=== PATIENT | male | born 1960 | race Caucasian/White ===

== ENCOUNTER → 2016-11-25 | Outpatient (CLI) | payer SELFPAY ==
[2016-11-25 11:11] LABS: HEMATOCRIT 45.3 % (42.0-52.0); MEAN CORPUSCULAR HEMOGLOBIN 23.7 PG (27-31); MEAN CORPUSCULAR HGB CONC 30.9 g/dL (33-37); MEAN PLATELET VOLUME 10.9 FL (7.4-12.2); RDW COEFFICIENT OF VARIATION 23.3 % (11.5-14.5)
[2016-11-25 11:21] LABS: BUN/CREATININE RATIO 17.5 (6-20); CALCIUM 9.1 mg/dL (8.7-10.7); CREATININE 1.6 mg/dL (0.70-1.50); PHOSPHORUS 3.4 mg/dl (2.4-4.3); POTASSIUM 4.2 meq/L (3.8-5.2)
[2016-11-25 11:32] LABS: PLATELET MORPHOLOGY COMMENT NORMAL MORPHOLOGY (NORM)
[2016-11-25 11:33] LABS: HEMOGLOBIN A1C 8.02 % (4.2-6.0); MEAN BLOOD GLUCOSE (CALC) 181.066 mg/dL
[2016-11-25 11:34] LABS: BAND NEUTROPHILS % 3 % (0-10); BASOPHILS % (MANUAL) 0 % (0-1); EOSINOPHILS % (MANUAL) 9 % (0-8); LYMPHOCYTES % (MANUAL) 35 % (10-50); MONOCYTES % (MANUAL) 9 % (0-12); NEUTROPHILS % (MANUAL) 44 % (50-80)
== END ==
LOC: MOB LAB 09:36
DX: E11.9 Type 2 diabetes mellitus without complications (principal); Z79.4 Long term (current) use of insulin; E55.9 Vitamin D deficiency, unspecified; I10 Essential (primary) hypertension; D50.9 Iron deficiency anemia, unspecified; I83.022 Varicose veins of left lower extremity with ulcer of calf
CPT/HCPCS: 36415; 80048; 82306; 83036; 84100; 85007; 85652

== ENCOUNTER → 2016-11-27 | Outpatient (CLI) | payer SELFPAY | LOC: LAB 16:25 | DX: R71.8 Other abnormality of red blood cells (principal) | CPT/HCPCS: 36415; 82728; 83540; 83550 ==

== ENCOUNTER → 2017-01-06 | Outpatient (CLI) | payer BC, OTHER ==
[2017-01-06 14:10] LABS: BASOPHILS # (AUTO) 0.03 10*3/UL; BASOPHILS % (AUTO) 0.3 % (0-1); HEMOGLOBIN 13.1 g/dL (14.0-18.0); IMM GRAN % (AUTO) 0.4 % (0-5); IMM GRAN# (AUTO) 0.04 10*3/UL; LYMPHOCYTES # (AUTO) 1.12 10*3/uL; LYMPHOCYTES % (AUTO) 12.4 % (10-50); MEAN CORPUSCULAR HEMOGLOBIN 24.7 PG (27-31); MEAN CORPUSCULAR HGB CONC 31.2 g/dL (33-37); MEAN PLATELET VOLUME 10.3 FL (7.4-12.2); MONOCYTES # (AUTO) 0.98 10*3/UL (0.3-0.8); MONOCYTES % (AUTO) 10.9 % (5-15); NEUTROPHILS # (AUTO) 5.66 10*3/UL; RDW COEFFICIENT OF VARIATION 20.8 % (11.5-14.5)
[2017-01-06 14:13] LABS: PLATELET MORPHOLOGY COMMENT NORMAL MORPHOLOGY (NORM)
[2017-01-06 15:43] LABS: BUN/CREATININE RATIO 35.55 (6-20); CREATININE 1.8 mg/dL (0.70-1.50)
== END ==
LOC: MOB LAB 10:37
DX: E11.9 Type 2 diabetes mellitus without complications (principal); Z79.4 Long term (current) use of insulin; I10 Essential (primary) hypertension; R04.2 Hemoptysis; Z12.5 Encounter for screening for malignant neoplasm of prostate
CPT/HCPCS: 36415; 80048; 85025; G0103

== ENCOUNTER → 2017-02-27 | Outpatient (CLI) | payer BC, OTHER ==
[2017-02-27 13:55] LABS: BILIRUBIN,URINE NEGATIVE (NEG); COLOR,URINE YELLOW; GLUCOSE, URINE (UA) NEGATIVE (NEG); NITRATE,URINE NEGATIVE (NEG); OCCULT BLOOD,URINE NEGATIVE (NEG); PROTEIN,URINE 30 mg/dl (NEG)
[2017-02-27 14:02] LABS: CLARITY,URINE CLEAR (CLEAR); RBC,URINE 0-2 /hpf; SQUAMOUS EPITHELIAL CELL,UR FEW; URINE SAMPLE TYPE VOID
== END ==
LOC: LAB 13:33
PROVIDERS: ATTEND Urology
DX: C67.9 Malignant neoplasm of bladder, unspecified (principal)
CPT/HCPCS: 81001

== ENCOUNTER → 2017-03-03 | Outpatient (CLI) | payer BC, OTHER ==
[2017-03-03 14:23] LABS: BUN/CREATININE RATIO 18.88 (6-20); CALCIUM 9.4 mg/dL (8.7-10.7)
[2017-03-03 14:31] LABS: HEMOGLOBIN A1C 7.41 % (4.2-6.0)
== END ==
LOC: MOB LAB 12:05
DX: E11.9 Type 2 diabetes mellitus without complications (principal); Z79.4 Long term (current) use of insulin; I10 Essential (primary) hypertension
CPT/HCPCS: 36415; 80048; 83036

== ENCOUNTER 2017-04-21 19:55 | Emergency (ER) | payer BC, OTHER ==
[2017-04-21] MEDS ORDERED: ONDANSETRON 4 MG/2 ML VIAL IVP ONE (20:17)
[2017-04-21] MEDS ORDERED: Sodium Chloride 0.9% 1,000 ML PRIMARY IV ONE (20:17)
[2017-04-21] MEDS ORDERED: ACETAMINOPHEN 325 MG TABLET PO ONE (20:17)
[2017-04-21] MEDS ORDERED: KETOROLAC 15 MG/1 ML VIAL IVP ONE (20:17)
[2017-04-21] MEDS ORDERED: NORMAL SALINE 10 ML SYRINGE FLUSH IVP PRN (20:17)
--- NOTE | 2017-04-21 20:22 | EKG ---
[address] [address] Measurements Intervals [place] Rate: 79 P: 60 WY: 116 QRS: 20 QRSD: 116 T: 127 QT: 376 QTc: 411 Interpretive Statements SINUS RHYTHM WITH SHORT WY INTERVAL MODERATE INTRAVENTRICULAR CONDUCTION DELAY [110+ ms QRS DURATION] ST DEVIATION AND MODERATE T-WAVE ABNORMALITY, CONSIDER LATERAL ISCHEMIA Compared to ECG 03/15/2017 19:47:34 Short [place] interval now present Intraventricular conduction delay now present T-wave abnormality now present Possible ischemia now present Atrial fibrillation no longer present Left anterior fascicular block no longer present Electronically Signed On 04-21-17 20:52:13 MDT by Prabhjot Rene [id number]
[2017-04-21 20:31] LABS: BASOPHILS # (AUTO) 0.02 10*3/UL; BASOPHILS % (AUTO) 0.1 % (0-1); EOSINOPHILS # (AUTO) 0.29 10*3/UL; EOSINOPHILS % (AUTO) 1.7 % (0-8); HEMOGLOBIN 12.3 g/dL (14.0-18.0); LYMPHOCYTES # (AUTO) 0.78 10*3/uL; MEAN CORPUSCULAR HEMOGLOBIN 25.2 PG (27-31); MEAN CORPUSCULAR HGB CONC 31.5 g/dL (33-37); MEAN CORPUSCULAR VOLUME 79.9 FL (80-90); MEAN PLATELET VOLUME 10.2 FL (7.4-12.2); MONOCYTES # (AUTO) 0.31 10*3/UL (0.3-0.8); MONOCYTES % (AUTO) 1.8 % (5-15); NEUTROPHILS % (AUTO) 91.4 % (50-80); PLATELET MORPHOLOGY COMMENT NORMAL MORPHOLOGY (NORM); RBC MORPHOLOGY COMMENT NORMAL MORPHOLOGY (NORM); RED BLOOD COUNT 4.88 10^6/uL (4.70-6.10); WBC MORPHOLOGY COMMENT NORMAL MORPHOLOGY (NORM)
[2017-04-21 20:43] LABS: C-REACTIVE PROTEIN 4.6 mg/dL (0.0-0.9); CALCIUM 8.6 mg/dL (8.7-10.7); SERUM ALBUMIN 3.7 g/dL (3.5-4.8)
[2017-04-21 21:05] LABS: ERYTHROCYTE SEDIMENTATION RATE 43 MM/HR (0-15)
--- NOTE | 2017-04-21 21:08 | DI ---
HISTORY: Fever, pain in shoulders and down into arms. FINDINGS: Cardiomegaly is noted with atheromatous changes of the dorsal aorta. Transvenous AICD an d post surgical sternal sutures are noted in position with metallic clips overlying the precordium. There appears to be some accentuation of the pulmonary vasculature in both lung bases. The lung fiel ds are otherwise essentially clear. IMPRESSION: 1. Accentuation of the pulmonary vasculature bilateral lung bases.
[2017-04-21 21:54] LABS: BILIRUBIN,URINE NEGATIVE (NEG); CLARITY,URINE CLEAR (CLEAR); COLOR,URINE YELLOW; GLUCOSE, URINE (UA) NEGATIVE (NEG); NITRATE,URINE NEGATIVE (NEG); OCCULT BLOOD,URINE NEGATIVE (NEG); PH,URINE 5.5 (5.0-8.5); PROTEIN,URINE NEGATIVE (NEG); URINE SAMPLE TYPE VOID; UROBILINOGEN,URINE 0.2 EU/dL (0.2)
[2017-04-21 22:21] VITALS: RESP 20
[2017-04-21 22:23] VITALS: TEMP 98
[2017-04-21] MEDS ORDERED: Cefepime Inj 2 GM in Sodium Chloride 0.9% 100 ML IV ONE (22:34)
[2017-04-21] MEDS ORDERED: Vancomycin Inj 1gm vial ONE (23:09)
--- NOTE | 2017-04-22 00:38 | PDOC ---
General Adult HPI - General Chief Complaint: General Medical Stated Complaint: BACK PAIN WITH FEVER AND CHILLS Date Seen by Provider: 04/21/17 Time Seen by Provider: 20:10 - History of Present Illness Initial Comment: Patient is a 57-year-old gentleman who has a complex past medical history including hospitalization about a month ago where he had cardiac arrest and internal defibrillator placement and prolonged ICU course for his arrest. He rehabilitated well after that and has been back to basically normal living for him. He is dependent on 2 L of oxygen at baseline and over the last day or 2 has been having increasing sense of malaise and feeling poorly and then some fever and rigors today. He decided to come into the emergency department be evaluated. When he arrived here in the emergency department he stated that he had some pain between his shoulder blades that went down into his arms bilaterally but that pain went away rather quickly after presenting here. He denies having any known sick contacts. He has not been having substantial cough he's had no belly pain nausea or vomiting no significant bowel changes. No significant dysuria. No obvious rashes or other infective skin issues. Have you received a tetanus shot in the past 10 years?: Yes - Patient Home Medications Home Medications: Home Medications Cholecalciferol [Vitamin D] 2 cap PO DAILY cap 09/01/13 Omeprazole 20 mg PO QD #30 cap 09/01/13 Furosemide 3 tab PO BID #120 08/26/16 Insulin Glargine Inj [Lantus Inj] 30 unit SQ BID #6 vial 11/27/16 Metoprolol Succinate 1 tab PO QD #90 tab 12/15/16 Insulin Lispro Inj [Humalog Inj] 15 units SUBCUT AC #500 ml 01/20/17 Clopidogrel Bisulfate [Plavix] 1 tab PO QD #90 tab 01/21/17 Blood Sugar Diagnostic [Blood Glucose Test] 1 strip MC 3-4X Qday #300 strip 05/09 Amiodarone HCl 200 mg PO DAILY 04/21/17 Atorvastatin Calcium 40 mg PO DAILY 04/21/17 Lisinopril 20 mg PO BID 04/21/17 QUEtiapine Tab [SEROquel Tab] 2 tab PO BEDTIME 04/21/17 Sildenafil Citrate [Viagra] 100 mg PO DAILY 04/21/17 Spironolactone 25 mg PO DAILY 05/30/17 Trazodone HCl 50 mg PO BEDTIME PRN 04/21/17 - Patient Allergies Allergies/Adverse Reactions: Allergies Allergy/AdvReac Type Severity Reaction Status Date / Time adhesive Allergy Mild HIVES Verified 04/21/17 20:19 latex Allergy Mild HIVES Verified 04/21/17 20:19 chocolate flavor AdvReac Mild SHORTNESS Verified 04/21/17 20:19 OF BREATH Past Medical History - heen HEENT History: Denies History Cardiovascular History: Hypertension, Previous [place], CAD, Pacemaker, Internal Defibrillator, Hyperlipidemia, Other (please comment) Additional Cardiovasular History: CABGx6 VESSEL 2003. STENT PLACED, DEFIB AND PACER PLACED 04/14/17. 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" Endocrine History: Type 2 Diabetes (insulin) Musculoskeletal History: Denies History Prosthesis or Implant: No Neurological History: Other (please comment) Additional Neurological History: ANOXIC BRAIN INJURY DUE TO CARDIAC ARREST IN JANUARY 2017 Blood Disorders: Denies History Psychiatric History: Denies History History of Sexually Transmitted Diseases: No Cancer History: Other (please comment) In Past Year Been Physically Harmed or Verbally Threatened: No History of MDRO: No History of Other Communicable Diseases: No Tobacco Use: Former Smoker Alcohol Use: None Substance Use Type: None Previous Surgical History: Yes Type / Date of Surgery: CABG 2003. STENT PLACEMENT, DEFIB/PACER PLACEMENT. LEFT HAND. LEFT FOOT WITH AMPUTATION OF 2 TOES ON LEFT FOOT Anesthesia Reactions: No Malignant Hyperthermia: No Significant Family History: Heart disease, Cancer, COPD, Diabetes, Hypertension Past Medical History Reviewed: Reviewed - No Changes ROS - Limitations ROS Limitations: No Limitations Constitution: REPORTS: Chills, Fever Cardiovascular: DENIES: Chest Pain, Heart Racing Respiratory: REPORTS: Denies Resp Symptoms Neurological: REPORTS: Denies Neuro Symptoms Gastrointestinal: REPORTS: Denies GI Symptoms General Adult Exam - General Appearance General Appearance: POSITIVE: Alert, Cooperative, No Acute Distress - HEENT HEENT: POSITIVE: Head Inspection Nml, Eyes Inspection Nml, Ears Inspection Nml, Nose Inspection Nml - Neck Neck: POSITIVE: Normal Inspection - Respiratory Respiratory: POSITIVE: No Respiratory Distress, Breath Sounds Normal, Chest Non- Tender - Cardiovascular Cardiovascular: POSITIVE: Regular Rate & Rhythm, No Murmur - Abdomen Abdomen: Soft: (All Quadrants), Normal Bowel Sounds: (All Quadrants), Denies Tenderness: (All Quadrants) - Neurological / Psychological Neurological: POSITIVE: Affect Apporpriate, Oriented X3 General Adult Progress - Results Reviewed by me Xrays/CTs/US Reviewed by me: Yes Radiology Findings: No obvious significant abnormalities. He had a CT chest abdomen pelvis which showed no substantial abnormality also chest x-ray that was relatively benign Lab Results Reviewed: Yes Lab Results:: Laboratory Results 04/21/17 04/21/17 Range/Units 20:05 21:47 WBC 17.49 H (4.8-10.8) 10^3/uL RBC 4.88 (4.70-6.10) 10^6/uL Hgb 12.3 L (14.0-18.0) g/dL Hct 39.0 L (42.0-52.0) % MCV 79.9 L (80-90) FL MCH 25.2 L (27-31) PG MCHC 31.5 L (33-37) g/dL RDW Std Deviation 51.2 H (39-50) fL RDW Coeff of Don 17.8 H (11.5-14.5) % Plt Count 201 (140-350) 10*3/uL MPV 10.2 (7.4-12.2) FL Immature Gran % (Auto) 0.5 (0-5) % Neut % (Auto) 91.4 H (50-80) % Lymph % (Auto) 4.5 L (10-50) % [place] % (Auto) 1.8 L (5-15) % Eos % (Auto) 1.7 (0-8) % Baso % (Auto) 0.1 (0-1) % Immature Gran # (Auto) 0.09 10*3/UL Neut # (Auto) 16.00 10*3/UL Lymph # (Auto) 0.78 10*3/uL [place] # (Auto) 0.31 (0.3-0.8) 10*3/UL Eos # (Auto) 0.29 10*3/UL Baso # (Auto) 0.02 10*3/UL WBC Morphology Comment Normal morphology (NORM) Plt Morphology Comment Normal morphology (NORM) RBC Morph Comment Normal morphology (NORM) ESR 43 H (0-15) MM/HR Sodium 133 L (135-145) meq/L Potassium 4.6 (3.8-5.2) meq/L Chloride 95 L (98-112) meq/L Carbon Dioxide 27 (23-33) meq/L Anion Gap 11 (5-20) BUN 24 H (7-22) mg/dL Creatinine 1.6 H (0.70-1.50) mg/dL Estimated GFR 45 (>60 ml/min/1.73m(2)) BUN/Creatinine Ratio 15.00 (6-20) Glucose 157 H (78-110) mg/dL Calculated Osmolality 282.0 (267-292) mOsm/kg Lactic Acid 2.7 H (0.70-2.10) MMOL/L Calcium 8.6 L (8.7-10.7) mg/dL Total Bilirubin 0.6 (0.3-1.2) mg/dL AST 25 (21-57) IU/L ALT 35 (21-72) IU/L Alkaline Phosphatase 157 H (38-126) IU/L Troponin I 0.034 (< 0.040) ng/mL C-Reactive Protein 4.6 H (0.0-0.9) mg/dL NT-Pro-B Natriuret Pep 1130 H (0-125) PG/ML Total Protein 7.1 (6.1-8.0) g/dL Albumin 3.7 (3.5-4.8) g/dL Globulin 3.4 (2.50-4.10) g/dL Albumin/Globulin Ratio 1.00 L (1.3-2.0) mg/g Ur Collection Type Void Urine Color Yellow Urine Clarity Clear (CLEAR) Urine pH 5.5 (5.0-8.5) Ur Specific [place] 1.010 (1.005-1.030) Urine Protein Negative (NEG) mg/dl Urine Glucose (UA) Negative (NEG) mg/dL Urine Ketones Negative (NEG) Urine Occult Blood Negative (NEG) Urine Nitrate Negative (NEG) Urine Bilirubin Negative (NEG) Urine Urobilinogen 0.2 (0.2) EU/dL Ur Leukocyte Esterase Negative (NEG) Ur Culture Indicated? Culture not set - Patient's Progress MDM / ED Course: This patient was admitted to the emergency department and had initial workup for possible sepsis given his fever and general malaise and recent hospitalization. Blood cultures were taken and initial labs showed a markedly elevated white blood cell count at around 17 with a left shift of 91% neutrophils. He also had an elevation in his lactic acid level. He is given some initial fluid hydration and started on broad-spectrum antibiotics including vancomycin and cefepime IV. It was recommended that he be admitted to the hospital for close monitoring and for continued care in regards to likely sepsis from a unknown source. His case was discussed with the hospitalist who recommended CT chest abdomen and pelvis. The patient's creatinine was very minimally elevated with a 1.6 creatinine on a normal scale for him is normal creatinine be 1.5. It was decided that benefit outweighed risk of kidney injury with contrast since we are doing CT scan of his chest abdomen pelvis and contrast was administered. This did not show any obvious source of infection for him. Patient is frustrated and he wants to leave and does not want to be admitted to the hospital. I've had multiple conversations with them try to talk him into being admitted to the hospital. He is insisting that he is going to leave. I have informed him that he is at very high risk for worsening of his infection and potential severe sepsis septic shock which could result in or permanent disability or prolonged severe hospitalization and he does not believe that any of those things will occur he thinks that he will be fine and is insisting on going home. I am going to make him sign out AGAINST MEDICAL ADVICE of encouraged him to follow-up with whatever health care provider he's willing to follow-up with as soon as possible. Patient Care Time - Estimated PCT Patient Care Time (In Minutes): 65 Vital Signs - Recent Vital Signs Vital Signs: Vital Signs (Last 8 hours) Temp Pulse Resp BP Pulse Ox 04/21/17 22:23 98.0 F 04/21/17 21:00 100 F H 80 20 92 04/21/17 20:24 100.9 F H 04/21/17 20:01 100.9 F H 78 26 H 128/65 96 - VS Reviewed Vital Signs Reviewed: Yes Discharge Clinical Impression: Fever, Fever of unknown origin Discharge Disposition: Against Medical Advice Condition: Stable Patient Instructions Given at Discharge: Against Medical Advice (ED) Additional Instructions: Follow-up with your retail product demo specialist or primary care provider as soon as possible.
== END 2017-04-22 01:14 | disposition left against medical advice (07) ==
LOC: ER 19:55
DX: R50.9 Fever, unspecified (principal); M54.89 Other dorsalgia; E11.9 Type 2 diabetes mellitus without complications; Z79.4 Long term (current) use of insulin; Z95.2 Presence of prosthetic heart valve
CPT/HCPCS: 36415; 71020; 71260; 74177; 80053; 81003; 83605; 83880; 84484; 85025; 85652; 86140; 87040; 87077; 87185; 87186; 87205; 93005; 93010; 96365; 96366; 96367; 96375; 99284; J0692; J1885; J2405; J3370; J7030; J7040; J7050

== ENCOUNTER → 2017-04-21 | Outpatient (CLI) | payer BC, OTHER ==
[2017-04-21 16:06] LABS: BUN/CREATININE RATIO 15.33 (6-20); CALCIUM 8.7 mg/dL (8.7-10.7); MAGNESIUM 1.1 mg/dL (1.6-2.4)
== END ==
LOC: LAB 15:39
PROVIDERS: ATTEND Internal Medicine Cardiovascular Disease
DX: I50.42 Chronic combined systolic (congestive) and diastolic (congestive) heart failure (principal)
CPT/HCPCS: 36415; 80048; 83735

== ENCOUNTER 2017-04-22 09:26 | Inpatient (IN) | payer BC, OTHER ==
[2017-04-22] MEDS ORDERED: NORMAL SALINE 10 ML SYRINGE FLUSH IVP PRN (09:59)
[2017-04-22] MEDS ORDERED: LIDOCAINE W/ SODIUM BICARB 0.5 ML SYR SUBD PRN (09:59)
[2017-04-22 10:16] VITALS: RESP 20
--- NOTE | 2017-04-22 10:23 | PDOC ---
History and Physical - History of Present Illness Date and Time of Service: 04/22/2017 11 AM Chief Complaint: Gram-positive organisms in the blood, fever not feeling well for 2 days History of Present Illness: This is a 57 years old male with medical history significant for history of diabetes, COPD on oxygen, coronary artery disease with previous CABG, on March 15 he suffered an out of hospital sudden cardiac and was successfully resuscitated. He underwent cardiac catheterization which showed significant stenosis in SVG to diagonal branch which was treated with a drug-eluting stent. His EF was 25%. He also had an AICD/pacemaker placed. He developed mild anoxic brain injury which is characterized mainly by impulsivity. He also had an episode of atrial flutter/fibrillation and underwent cardioversion. He did not tolerate Coumadin and he was put only on aspirin and Plavix. He presented last night to the ER because he was feeling weak and had malaise with fever at home. He had multiple tests in the ER which showed elevated white count they took and blood cultures they gave him antibiotics including vancomycin and cefipime there was no clear source of infection, ER physician discussed with him admission however the patient signed AMA and the went home. I was called this morning by Dr. Pruitt as the patient had positive blood cultures showing gram -positive organisms and the patient was admitted directly. Currently he is denying symptoms. He is denying pain no shortness of breath no dysuria no cough. Past Medical History Medical History: 1) CAD, s/p CABG in 2003, 5 vessels. 2) HTN. 3) DMII. 4) COPD. 5) Hypercholesterolemia. 6) obesity. 7) GERD. 8. Out of hospital cardiac arrest with ventricular fibrillation, status post AICD placement and on amiodarone therapy that happened on 03/15/2017 was transferred to [facility]. 9. Graft vessel coronary artery disease with drug eluting stent to the saphenous vein graft in March 2017. 10. Iron deficiency anemia. 11. Hematoma in the left upper chest in the AICD pocket March 2017. 12. Chronic systolic and diastolic congestive heart failure ejection fraction 25%. 13. Atrial fibrillation/flutter on aspirin and is intolerant of Coumadin. 14. Pulmonary hypertension. 15. Sleep apnea on CPAP Surgical History: 1) CABG. 2) left hand surgery. 3. Amputation off left lateral toes done early this year for osteomyelitis Pertinent Family History: positive for diabetes and heart disease in parents. father also had cancer. Past Social History: . 7 children, one has passed on from a gun shot wound, no smoking, no drinking, no illegal drugs. Tobacco Use: Former Smoker Substance Use Type: None Alcohol Use: None Medication / Allergies Home Medications: Home Medications Medication Instructions Recorded Confirmed Type Cholecalciferol [Vitamin D] 2 cap PO DAILY cap 09/01/13 04/21/17 History Omeprazole 20 mg PO QD #30 cap 09/01/13 04/21/17 History Furosemide 3 tab PO BID #120 08/26/16 04/21/17 History Insulin Glargine Inj [Lantus Inj] 30 unit SQ BID #6 vial 11/27/16 04/21/17 Clinic Metoprolol Succinate 1 tab PO QD #90 tab 12/15/16 04/21/17 Clinic Insulin Lispro Inj [Humalog Inj] 15 units SUBCUT AC #500 ml 01/20/17 04/21/17 Clinic Clopidogrel Bisulfate [Plavix] 1 tab PO QD #90 tab 01/21/17 04/21/17 Clinic Blood Sugar Diagnostic [Blood 1 strip MC 3-4X Qday #300 strip 02/26/17 04/21/17 Clinic Glucose Test] Amiodarone HCl 200 mg PO DAILY 04/21/17 04/21/17 History Atorvastatin Calcium 40 mg PO DAILY 04/21/17 04/21/17 History Lisinopril 20 mg PO BID 04/21/17 04/21/17 History QUEtiapine Tab [SEROquel Tab] 2 tab PO BEDTIME 04/21/17 04/21/17 History Sildenafil Citrate [Viagra] 100 mg PO DAILY 04/21/17 04/21/17 History Spironolactone 25 mg PO DAILY 04/21/17 04/21/17 History Trazodone HCl 50 mg PO BEDTIME PRN 04/21/17 04/21/17 History Allergies/Adverse Reactions: Allergies Allergy/AdvReac Type Severity Reaction Status Date / Time adhesive Allergy Mild HIVES Verified 04/21/17 20:19 latex Allergy Mild HIVES Verified 04/21/17 20:19 chocolate flavor AdvReac Mild SHORTNESS Verified 04/21/17 20:19 OF BREATH Review of Systems - Review of Systems All Systems: Reviewed & No Additional Complaints Except as Stated Exam - Vitals Vital Signs: Vital Signs Temperature 97.9 F Temperature Source Temporal Artery Scan Pulse Rate [Pulse Oximeter] 70 Respiratory Rate 20 Blood Pressure [Left Arm] 85/58 Pulse Ox 93 Oxygen Flow Rate 3 Oxygen Delivery Method Nasal Cannula Height 5 ft 11 in Weight 263 lb 6.4 oz - General General Appearance: POSITIVE: No Acute Distress, Cooperative, Obese - Head Head Exam: POSITIVE: Normal Inspection, Atraumatic - Eye Eye Exam: POSITIVE: Normal Appearance - ENT ENT Exam: POSITIVE: Normal Exam - Neck Neck Exam: POSITIVE: Normal Inspection - Respiratory Respiratory Exam: POSITIVE: Clear to Auscultation - Bilaterally - Cardiovascular Cardiovascular Exam: POSITIVE: RRR - GI/Abdominal GI/Abdominal Exam: POSITIVE: Normal Bowel Sounds, Non Tender, Non Distended Additional GI/Abdominal Exam Details: Rash noted in the abdominal pannus looks like candidiasis - Rectal Rectal Exam: POSITIVE: Deferred - External Exam: POSITIVE: Deferred - Extremities Extremities Exam: POSITIVE: Normal Inspection - Back Back Exam: POSITIVE: Normal Inspection - Neurological Neurological Exam: POSITIVE: Alert, Oriented x 3, CN II-XII Intact, Moves All Extremities Equally - Integumentary Additional Integumentary Exam Details: There is minimal erythema where he had the incision for the AICD was some fluctuation but it's not tender. Results - Labs CBC and BMP: 04/22/17 10:27 04/22/17 10:27 Assessment and Plan - Patient Problems (1) Gram-positive bacteremia Current Visit: Yes Status: Acute Comment: We'll be cautious with the fluids because of history of congestive heart failure, will puts him on vancomycin. I will speak with infectious disease as am I concerned there may be infection of the lead of the AICD (2) CHF (congestive heart failure) Current Visit: No Status: Acute Comment: His blood pressure is borderline so we'll hold his diuretics repeat his labs tomorrow. Qualifiers: Congestive heart failure type: diastolic Congestive heart failure chronicity: acute on chronic Qualified Description: Acute on chronic diastolic congestive heart failure Qualifier Code(s): (I50.33) Acute on chronic diastolic (congestive) heart failure (3) Acute on chronic renal failure Current Visit: Yes Status: Acute Comment: His kidney function is worse today compared to last night, as discussed above we'll give him cautious amount of fluid will keep an eye on his fluid status and the repeat his labs in the morning. May have to hold the lisinopril and Lasix for tomorrow. (4) DMII (diabetes mellitus, type 2) Current Visit: No Status: Acute Comment: Will put him on Lantus and sliding scale Qualifiers: Diabetes mellitus complication status: with neurologic complications Diabetes mellitus complication detail: with autonomic neuropathy Diabetes mellitus snf insulin use: with buttermaker continuous churn use Qualified Description: Type 2 diabetes mellitus with diabetic autonomic neuropathy, with long-term current use of insulin Qualifier Code(s): (E11.43) Type 2 diabetes mellitus with diabetic autonomic (poly)neuropathy, (Z79.4) MCC (current) use of insulin (5) Coronary artery disease Current Visit: Yes Status: Acute Comment: Continue aspirin, Plavix. Continue statin. We'll see what happens to his blood pressure then will decide about the beta baylee. Continue amiodarone.
[2017-04-22 10:33] LABS: BASOPHILS # (AUTO) 0.02 10*3/UL; BASOPHILS % (AUTO) 0.1 % (0-1); EOSINOPHILS # (AUTO) 0.09 10*3/UL; EOSINOPHILS % (AUTO) 0.5 % (0-8); HEMATOCRIT 36.2 % (42.0-52.0); HEMOGLOBIN 11.4 g/dL (14.0-18.0); LYMPHOCYTES # (AUTO) 0.65 10*3/uL; MEAN CORPUSCULAR HEMOGLOBIN 25.4 PG (27-31); MEAN CORPUSCULAR HGB CONC 31.5 g/dL (33-37); MEAN CORPUSCULAR VOLUME 80.6 FL (80-90); MONOCYTES # (AUTO) 0.82 10*3/UL (0.3-0.8); MONOCYTES % (AUTO) 4.3 % (5-15); NEUTROPHILS # (AUTO) 17.61 10*3/UL; NEUTROPHILS % (AUTO) 91.3 % (50-80); RED BLOOD COUNT 4.49 10^6/uL (4.70-6.10)
[2017-04-22 10:35] LABS: PLATELET MORPHOLOGY COMMENT NORMAL MORPHOLOGY (NORM); RBC MORPHOLOGY COMMENT NORMAL MORPHOLOGY (NORM); WBC MORPHOLOGY COMMENT NORMAL MORPHOLOGY (NORM)
[2017-04-22 10:46] LABS: BUN/CREATININE RATIO 14.09 (6-20); CALCIUM 8.2 mg/dL (8.7-10.7); SERUM ALBUMIN 3.5 g/dL (3.5-4.8)
[2017-04-22] MEDS ORDERED: Insulin Lispro Flexpen 300 UNIT/3 ML INSULN.PEN SUBCUT SCH (11:00)
[2017-04-22] MEDS ORDERED: Sodium Chloride 0.9% 1,000 ML IV SCH (11:00)
--- NOTE | 2017-04-22 11:00 | DI ---
HISTORY: Fever. FINDINGS: Cardiomegaly is noted with atheromatous changes of the dorsal aorta. Transvenous AICD and post surgical sternal sutures are noted in position with metallic clips overlying the precordium. T here appears to be some accentuation of the pulmonary vasculature in both lung bases. The lung field s are otherwise essentially clear. IMPRESSION: 1. Cardiomegaly. 2. Accentuation of the pulmonary vasculature bilateral lung bases.
[2017-04-22] MEDS ORDERED: Vancomycin-PHA to Dose IV PRN (11:02)
[2017-04-22 11:19] VITALS: TEMP 97.4
[2017-04-22] MEDS: Sodium Chloride 0.9% 250 ML IV SCH ×2 (12:16→12:17)
--- NOTE | 2017-04-22 14:09 | DCSUMMARY ---
Hospitalization Summary Admit Date: 04/22/17 Discharge Date: 04/22/17 Hospital Course: Transfer diagnoses 1. Sepsis secondary to gram-positive bacteremia 2. Possible AICD lead infection 3. Acute on chronic renal failure 4. Diabetes on insulin 5. Coronary artery disease status post CABG in 2003 6. Hematoma at the AICD insertion site 7. Out of hospital cardiac arrest with ventricular fibrillation successfully resuscitated in February 2017 8. Iron deficiency anemia 9. Chronic systolic and diastolic congestive heart failure/25% 10. History of atrial flutter/fibrillation on aspirin as he is intolerant of Coumadin 11. Sleep apnea on CPAP 12. Obesity 13. Candidiasis of the [facility] course This is a 57 years old male with medical history significant for history of diabetes, COPD on oxygen, coronary artery disease with previous CABG, on March 15 this year he suffered an out of hospital sudden cardiac and was successfully resuscitated. He underwent cardiac catheterization which showed significant stenosis of SVG to diagonal branch which was treated with a drug- eluting stent. His EF was 25%. He also had an AICD/pacemaker placed. He developed mild anoxic brain injury which is characterized mainly by impulsivity. He also had an episode of atrial flutter/fibrillation underwent cardioversion as he was intolerant to Coumadin and was put on aspirin and Plavix. He was discharged on 04/13. He came into the ER last night because he was feeling weak and had malaise with fever at home. Multiple tests done in the ER and that showed elevated white count, there was no clear focus of infection. the ER physician spoke to him about admission however the patient signed AMA and went home. I was called by his physician Dr. Pruitt this morning as the blood culture turned positive, 4 bottles with gram-positive cocci. The patient was admitted directly here. His exam was remarkable for obesity and rash in the [facility] look like candidiasis. But in addition he had a swelling that was fluctuant at the incision site of the AICD. It was nontender though. there Is some slight erythema. And old blood also. We did repeat his white count which showed his white count to be higher at 19, 000 his creatinine also went up to 2.2. His blood pressure dropped 78 systolic gave him a bolus of fluid blood pressure came up to 94 systolic. I am concerned that he may have an AICD leads infection so I spoke with Dr. Peterson infectious disease in [place] and he suggested a transfer. I did speak with Dr. Yates the hospitalist at [facility] and he accepted the patient. I did speak with the patient and his and they agreed on transfer. The patient will be transferred at one point today. He did receive a dose of vancomycin today after the fluid bolus. Laboratory Results 04/22/17 Range/Units 10:27 WBC 19.27 H (4.8-10.8) 10^3/uL RBC 4.49 L (4.70-6.10) 10^6/uL Hgb 11.4 L (14.0-18.0) g/dL Hct 36.2 L (42.0-52.0) % MCV 80.6 (80-90) FL MCH 25.4 L (27-31) PG MCHC 31.5 L (33-37) g/dL RDW Std Deviation 52.4 H (39-50) fL RDW Coeff of Don 18.1 H (11.5-14.5) % Plt Count 181 (140-350) 10*3/uL MPV 10.0 (7.4-12.2) FL Immature Gran % (Auto) 0.4 (0-5) % Neut % (Auto) 91.3 H (50-80) % Lymph % (Auto) 3.4 L (10-50) % Roane % (Auto) 4.3 L (5-15) % Eos % (Auto) 0.5 (0-8) % Baso % (Auto) 0.1 (0-1) % Immature Gran # (Auto) 0.08 10*3/UL Neut # (Auto) 17.61 10*3/UL Lymph # (Auto) 0.65 10*3/uL [place] # (Auto) 0.82 H (0.3-0.8) 10*3/UL Eos # (Auto) 0.09 10*3/UL Baso # (Auto) 0.02 10*3/UL WBC Morphology Comment Normal morphology (NORM) Plt Morphology Comment Normal morphology (NORM) RBC Morph Comment Normal morphology (NORM) PT 14.4 H (9.7-11.4) secs INR 1.39 (0.00-5.90) N/A Sodium 133 L (135-145) meq/L Potassium 4.9 (3.8-5.2) meq/L Chloride 95 L (98-112) meq/L Carbon Dioxide 27 (23-33) meq/L Anion Gap 11 (5-20) BUN 31 H (7-22) mg/dL Creatinine 2.2 H (0.70-1.50) mg/dL Estimated GFR 31 (>60 ml/min/1.73m(2)) BUN/Creatinine Ratio 14.09 (6-20) Glucose 174 H (78-110) mg/dL Calculated Osmolality 286.0 (267-292) mOsm/kg Calcium 8.2 L (8.7-10.7) mg/dL Total Bilirubin 1.0 (0.3-1.2) mg/dL AST 24 (21-57) IU/L ALT 30 (21-72) IU/L Alkaline Phosphatase 136 H (38-126) IU/L Total Protein 6.6 (6.1-8.0) g/dL Albumin 3.5 (3.5-4.8) g/dL Globulin 3.1 (2.50-4.10) g/dL Albumin/Globulin Ratio 1.10 L (1.3-2.0) mg/g Discharge instruction Diet diuretic Activity as tolerated Medications Active Medications Amiodarone HCl (Cordarone) 200 mg PO DAILY [facility] Aspirin (Aspirin Ec) 81 mg PO DAILY [facility] Atorvastatin Calcium (Lipitor) 40 mg PO BEDTIME [facility] Clopidogrel Bisulfate (Plavix) 75 mg PO DAILY [facility] Ferrous Sulfate (Feosol) 325 mg PO DAILY [facility] Sodium Chloride (Normal Saline 0.9%) 25 mls @ 200 mls/hr IV .Post Infusion PRN PRN Reason: No Primary IV for Flush ONLY Sodium Chloride (Normal Saline) 1,000 mls @ 100 mls/hr IV .Q10H [facility] Last Admin: 04/22/17 11:20 Dose: 100 mls/hr Vancomycin HCl 1.75 gm/ Sodium (Chloride) 500 mls @ 333.333 mls/hr IV Q24H [facility] Last Admin: 04/22/17 11:50 Dose: 333.333 mls/hr Insulin Glargine (Lantus Solostar Inj) 15 unit SUBCUT BID [facility] Insulin Human Lispro (Humalog Flexpen Inj) 0 - 12 unit SUBCUT AC [facility] PRN Reason: Protocol Last Admin: 04/22/17 11:21 Dose: 4 unit Lidocaine HCl (Lidocaine Buffered Inj) 0.5 ml SUBD ONCE PRN PRN Reason: IV Starts Metoprolol Succinate (Toprol Xl) 50 mg PO DAILY [facility] Multivitamins Therapeutic (Thera Tab) 1 tab PO DAILY [facility] Omeprazole (Prilosec) 40 mg PO AC BK [facility] Quetiapine Fumarate (Seroquel Tab) 200 mg PO BEDTIME [facility] Sodium Chloride (Saline Flush) 5 - 20 ml IVP BID PRN PRN Reason: Flush Follow-up per [facility] post discharge Condition at transfer was stable for transfer Exam - Vitals Vital Signs: Vital Signs Temperature 97.4 F Temperature Source Temporal Artery Scan Pulse Rate [Pulse Oximeter] 70 Pulse Rate 70 Respiratory Rate 20 Blood Pressure [Right Arm] 94/61 Blood Pressure [Left Arm] 78/52 Pulse Ox 98 Oxygen Flow Rate 3 Oxygen Delivery Method Nasal Cannula Height 5 ft 11 in Weight 263 lb 6.4 oz Patient Problems - Patient Problem List (1) Gram-positive bacteremia Current Visit: Yes Status: Acute (2) CHF (congestive heart failure) Current Visit: No Status: Acute Qualifiers: Congestive heart failure type: diastolic Congestive heart failure chronicity: acute on chronic Qualified Description: Acute on chronic diastolic congestive heart failure Qualifier Code(s): (I50.33) Acute on chronic diastolic (congestive) heart failure (3) Acute on chronic renal failure Current Visit: Yes Status: Acute (4) DMII (diabetes mellitus, type 2) Current Visit: No Status: Acute Qualifiers: Diabetes mellitus complication status: with neurologic complications Diabetes mellitus complication detail: with autonomic neuropathy Diabetes mellitus group home insulin use: with intermodal dispatcher use Qualified Description: Type 2 diabetes mellitus with diabetic autonomic neuropathy, with long-term current use of insulin Qualifier Code(s): (E11.43) Type 2 diabetes mellitus with diabetic autonomic (poly)neuropathy, (Z79.4) assisted (current) use of insulin (5) Coronary artery disease Current Visit: Yes Status: Acute
[2017-04-22] MEDS ORDERED: ATORVASTATIN 40 MG TABLET PO SCH (21:00)
[2017-04-22] MEDS ORDERED: Insulin Glargine SoloStar Inj 100 UNIT/ML INSULN.PEN SUBCUT SCH (21:00)
[2017-04-22] MEDS ORDERED: QUEtiapine Tab 100 MG TAB PO SCH (21:00)
[2017-04-23] MEDS ORDERED: OMEPRAZOLE 40 MG CAPSULE PO SCH (07:00)
[2017-04-23] MEDS ORDERED: Spironolactone Tab 25 MG TAB PO SCH (07:00)
[2017-04-23] MEDS ORDERED: Multivitamin Tab 1 TAB PO SCH (09:00)
[2017-04-23] MEDS ORDERED: METOPROLOL SUCCINATE 25 MG SR 24H TABLET PO SCH ×2 (09:00)
[2017-04-23] MEDS ORDERED: CLOPIDOGREL 75 MG TABLET PO SCH (09:00)
[2017-04-23] MEDS ORDERED: ASPIRIN EC 81 MG TABLET PO SCH (09:00)
[2017-04-23] MEDS ORDERED: LISINOPRIL 5 MG TABLET PO SCH (09:00)
[2017-04-23] MEDS ORDERED: FERROUS SULFATE 325 MG TABLET PO SCH (09:00)
[2017-04-23] MEDS ORDERED: AMIODARONE 200 MG TABLET PO SCH (09:00)
== END 2017-04-22 14:39 | disposition short-term general hospital (02) | DRG 872 ==
LOC: MED/SURG 09:26
PROVIDERS: ADMIT Internal Medicine; ATTEND Internal Medicine
DX: R78.81 Bacteremia (principal); T82.7XXA Infection and inflammatory reaction due to other cardiac and vascular devices, implants and grafts, initial encounter; N17.9 Acute kidney failure, unspecified; E11.9 Type 2 diabetes mellitus without complications; Z79.4 Long term (current) use of insulin; I25.10 Atherosclerotic heart disease of native coronary artery without angina pectoris
CPT/HCPCS: 36415; 71010; 80053; 82948; 85025; 85610; 87040; 87077; 87185; 87186; 87205; J3370; J7030; J7040; J7050

== ENCOUNTER → 2017-06-01 | Outpatient (CLI) | payer BC, OTHER ==
[2017-06-01 15:24] LABS: BUN/CREATININE RATIO 17.33 (6-20); CALCIUM 10.2 mg/dL (8.7-10.7); MAGNESIUM 1.5 mg/dL (1.6-2.4)
== END ==
LOC: LAB 14:19
PROVIDERS: ATTEND Internal Medicine Cardiovascular Disease
DX: I49.01 Ventricular fibrillation (principal)
CPT/HCPCS: 36415; 80048; 83735

== ENCOUNTER → 2017-06-19 | Outpatient (CLI) | payer BC, OTHER ==
[2017-06-19 13:09] LABS: BUN/CREATININE RATIO 23.52 (6-20); CALCIUM 9.9 mg/dL (8.7-10.7)
[2017-06-19 15:20] LABS: HEMATOCRIT 41.4 % (42.0-52.0); HEMOGLOBIN 13.2 g/dL (14.0-18.0); MEAN CORPUSCULAR HEMOGLOBIN 26.7 PG (27-31); MEAN CORPUSCULAR HGB CONC 31.9 g/dL (33-37); MEAN CORPUSCULAR VOLUME 83.6 FL (80-90); RED BLOOD COUNT 4.95 10^6/uL (4.70-6.10)
[2017-06-19 15:21] LABS: BASOPHILS # (AUTO) 0.08 10*3/UL; BASOPHILS % (AUTO) 0.6 % (0-1); EOSINOPHILS # (AUTO) 1.68 10*3/UL; EOSINOPHILS % (AUTO) 12.7 % (0-8); LYMPHOCYTES # (AUTO) 2.09 10*3/uL; MEAN PLATELET VOLUME 11.4 FL (7.4-12.2); MONOCYTES # (AUTO) 1.17 10*3/UL (0.3-0.8); MONOCYTES % (AUTO) 8.8 % (5-15); NEUTROPHILS # (AUTO) 8.13 10*3/UL; NEUTROPHILS % (AUTO) 61.3 % (50-80); PLATELET MORPHOLOGY COMMENT NORMAL MORPHOLOGY (NORM); RBC MORPHOLOGY COMMENT NORMAL MORPHOLOGY (NORM); WBC MORPHOLOGY COMMENT NORMAL MORPHOLOGY (NORM)
== END ==
LOC: MOB LAB 11:10
DX: E11.9 Type 2 diabetes mellitus without complications (principal); Z79.4 Long term (current) use of insulin; D64.9 Anemia, unspecified; E78.5 Hyperlipidemia, unspecified; I10 Essential (primary) hypertension; E83.42 Hypomagnesemia
CPT/HCPCS: 36415; 80048; 83036; 83735; 84443; 85025